=== PATIENT | female | born 1990 | race Caucasian/White ===

== ENCOUNTER 2023-07-01 14:46 | Emergency (ER) | payer OTHER, SELFPAY ==
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
[2023-07-01 17:01] VITALS: BP 110/63; PULSE 72; RESP 16; TEMP 36.5; O2SAT 98; BMI 28.0
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
[2023-07-01] MEDS: Acetaminophen 325 MG TABLET 975 MG PO (19:27)
[2023-07-01 19:53] VITALS: BP 115/68; PULSE 74; RESP 16; TEMP 36.8; O2SAT 99
== END 2023-07-01 20:36 | disposition home or self-care (01) ==
PROVIDERS: Emergency Provider Emergency Medicine
DX: S83.92XA Sprain of unspecified site of left knee, initial encounter (principal); S00.83XA Contusion of other part of head, initial encounter; M54.50 Low back pain, unspecified; R51.9 Headache, unspecified; M25.562 Pain in left knee; V43.62XA Car passenger injured in collision with other type car in traffic accident, initial encounter; Y93.9 Activity, unspecified; Y92.410 Unspecified street and highway as the place of occurrence of the external cause; Y99.9 Unspecified external cause status
CPT/HCPCS: 70450; 70486; 72125; 73564; 99283; 99284